=== PATIENT | female | born 1945 | race Caucasian/White ===

== ENCOUNTER 2017-08-21 13:02 | Inpatient (IN) | payer MEDICARE, OTHER ==
[2017-08-21 14:20] LABS: BASOPHILS # (AUTO) 0.1 10^3/uL (0.0-0.1); BASOPHILS % (AUTO) 0.9 %; EOSINOPHILS # (AUTO) 0.1 10^3/uL (0.0-0.7); EOSINOPHILS % (AUTO) 1.3 %; HCT - HEMATOCRIT 38.7 % (37.0-47.0); HGB - HEMOGLOBIN 13.5 g/dL (12.0-16.0); LYMPHOCYTES # (AUTO) 1.7 10^3/uL (1.5-3.5); LYMPHOCYTES % (AUTO) 26.2 %; MEAN CORPUSCULAR HEMOGLOBIN 31.9 pg (27.0-31.0); MEAN CORPUSCULAR VOLUME 91.1 fL (81.0-99.0); MEAN PLATELET VOLUME 7.4 fL (7.9-10.8); MONOCYTES # (AUTO) 0.5 10^3/uL (0.0-1.0); MONOCYTES % (AUTO) 8.5 %; NEUTROPHILS # (AUTO) 4.1 10^3/uL (1.5-6.6); NEUTROPHILS % (AUTO) 63.1 %; RED BLOOD COUNT 4.25 10^6/uL (4.20-5.40); RED CELL DISTRIBUTION WIDTH 12.8 % (12.0-15.0); UNCORRECTED WHITE BLOOD COUNT 6.5 x10^3/uL; WHITE BLOOD COUNT 6.5 x10^3/uL (4.8-10.8)
[2017-08-21 14:40] LABS: ALBUMIN/GLOBULIN RATIO 1.3 (1.0-2.2); BILIRUBIN,TOTAL 0.5 mg/dL (0.2-1.0); CALCIUM 8.9 mg/dL (8.5-10.3); CREATININE 0.8 mg/dL (0.4-1.0); POTASSIUM 4.1 mmol/L (3.5-5.0); TOTAL PROTEIN 6.6 g/dL (6.7-8.2)
[2017-08-21 14:43] LABS: BILIRUBIN,URINE NEGATIVE (NEGATIVE)
[2017-08-21 14:44] LABS: UA CHARGE (STRIP ONLY) YES; UR CULTURE IF IND NOT INDICATED
--- NOTE | 2017-08-21 15:02 | ED Physician Documentation ---
History of Present Illness - Stated complaint Stated Complaint: DIARRHEA,ABD PX,FATIGUE,NAUSEA - Chief complaint Chief Complaint: Abd Pain - Additonal information Additional information: hx from pt 72 f to ER with 2 days for nausea vomiting (intially better with meds from UC) abd bloating some diarrhea/loose stools, feels backed up and crampy, spot of blood in BM per pt urinary hesitancy perhaps retention went to walk in and examined no labs or imaging, rx nausea meds, advised if not better to go to the ER not better no prior surgeries family not sick visiting locally Review of Systems Constitutional: denies: Fever, Chills Cardiac: denies: Chest pain / pressure Respiratory: denies: Dyspnea GI: reports: Abdominal Pain, Abdominal Swelling, Nausea, Diarrhea, Bloody / black stool : reports: Hesitancy Immunocompromised: denies: Immunocompromised PD PAST MEDICAL HISTORY - Past Medical History Cardiovascular: Hypertension Respiratory: Emphysema Psych: Depression - Present Medications Home Medications: Ambulatory Orders Medication Instructions Recorded Confirmed Atorvastatin Calcium 40 mg PO DAILY 08/21/17 08/21/17 Citalopram [CeleXA] 40 mg PO DAILY 08/21/17 08/21/17 Glimepiride [Amaryl] 8 mg PO DAILY 08/21/17 08/21/17 Liraglutide [Victoza 2-Jorge] 0.3 mg SQ DAILY 08/21/17 08/21/17 Metformin HCl 1,000 mg PO BID 08/21/17 08/21/17 Quinapril HCl 1 tab PO DAILY 08/21/17 08/21/17 hydroCHLOROthiazide 25 mg PO DAILY 08/21/17 08/21/17 [Hydrochlorothiazide] - Allergies Allergies/Adverse Reactions: Allergies Allergy/AdvReac Type Severity Reaction Status Date / Time codeine Allergy Rash Verified 08/21/17 13:23 - Social History Does the pt smoke?: Yes Smoking Status: Current every day smoker PD ED PE NORMAL - Vitals Vital signs reviewed: Yes - Neck Neck: Supple, no meningeal sign - Cardiac Cardiac: RRR - Respiratory Respiratory: No respiratory distress, Clear bilaterally - Abdomen Abdomen: Soft, Other (mod distended, + BS, sofft, midline ventral hernia above umbilicus reucible, TTP across lower abd with enlarged bladder vs mass) - Rectal Rectal: Other (no mass, no impaction, occult blood neg QC passed) Results - Vitals Vitals: Vital Signs - 24 hr 08/21/17 08/21/17 13:18 15:40 Temperature 36.3 C L 36.5 C Heart Rate 93 81 Respiratory 17 18 Rate Blood Pressure 136/77 H 131/69 H O2 Saturation 97 95 Oxygen O2 Source Room air - Labs Labs: Laboratory Tests 08/21/17 08/21/17 08/21/17 13:50 14:15 14:15 WBC 6.5 RBC 4.25 Hgb 13.5 Hct 38.7 MCV 91.1 MCH 31.9 H MCHC 35.0 RDW 12.8 Plt Count 416 MPV 7.4 L Neut # 4.1 Lymph # 1.7 [place] # 0.5 Eos # 0.1 Baso # 0.1 Absolute Nucleated RBC 0.00 Nucleated RBC % 0.0 Sodium 117 L* Potassium 4.1 Chloride 77 L* Carbon Dioxide 27 Anion Gap 13.0 BUN 9 Creatinine 0.8 Estimated GFR (MDRD) 71 L Glucose 290 H Calcium 8.9 Total Bilirubin 0.5 AST 30 ALT 21 Alkaline Phosphatase 35 L Troponin I Total Protein 6.6 L Albumin 3.7 Globulin 2.9 Albumin/Globulin Ratio 1.3 Lipase 49 Urine Color YELLOW Urine Clarity CLEAR Urine pH 7.0 Ur Specific [place] 1.010 Urine Protein NEGATIVE Urine Glucose (UA) NEGATIVE Urine Ketones NEGATIVE Urine Occult Blood NEGATIVE Urine Nitrite NEGATIVE Urine Bilirubin NEGATIVE Urine Urobilinogen 0.2 (NORMAL) Ur Leukocyte Esterase NEGATIVE Ur Microscopic Review NOT INDICATED Urine Culture Comments NOT INDICATED 08/21/17 14:15 WBC RBC Hgb Hct MCV MCH MCHC RDW Plt Count MPV Neut # Lymph # [place] # Eos # Baso # Absolute Nucleated RBC Nucleated RBC % Sodium Potassium Chloride Carbon Dioxide Anion Gap BUN Creatinine Estimated GFR (MDRD) Glucose Calcium Total Bilirubin AST ALT Alkaline Phosphatase Troponin I < 0.04 Total Protein Albumin Globulin Albumin/Globulin Ratio Lipase Urine Color Urine Clarity Urine pH Ur Specific [place] Urine Protein Urine Glucose (UA) Urine Ketones Urine Occult Blood Urine Nitrite Urine Bilirubin Urine Urobilinogen Ur Leukocyte Esterase Ur Microscopic Review Urine Culture Comments - Rads (name of study) CT AP Radiology: See rad report (divertculosis no -itis, gallstones, tiny renal stone , other chronic findings) PD MEDICAL DECISION MAKING - ED course ED course: gallstones on CT but no RUQ TTP on exam, nl WBC and bili, no acute chle on CT - do not think need sono in summary 72 f with NVD bloating with a neg CT - may well be viral - but Na 117 so will talk to hospitalist to at least obs till safely higher Departure - Departure Disposition: 66 [facility] DC/Xfer Clinical Impression: Hyponatremia Abdominal pain Qualifiers: Abdominal location: unspecified location Qualified Code(s): R10.9 - Unspecified abdominal pain Condition: Fair
[2017-08-21] MEDS ORDERED: SODIUM CHLORIDE 0.9% 1,000 ML IV ONE (15:19)
--- NOTE | 2017-08-21 15:44 | CT Preliminary Report ---
Exam: CT ABDOMEN/PELVIS W/O IMPRESSION: 1. Marked diverticulosis. No definite diverticulitis at this time. 2. Cholelithiasis. 3. Tiny nonobstructing left renal stone. 4. Other chronic or incidental findings. [facility] SITE ID: [id number]
--- NOTE | 2017-08-21 15:46 | CT Report ---
EXAM: CT ABDOMEN AND PELVIS EXAM DATE: 08/21/2017 03:24 PM. CLINICAL HISTORY: Abd bloating pain nausea. COMPARISONS: None. TECHNIQUE: Routine helical CT imaging was performed through the abdomen and pelvis. IV contrast: None . Enteric contrast: No. Reconstructions: Coronal and sagittal. In accordance with CT protocol optimization, one or more of the following dose reduction techniques w ere utilized for this exam: automated exposure control, adjustment of mA and/or KV based on patient s ize, or use of iterative reconstructive technique. FINDINGS: Lung Bases: Clear. No effusion. At least 2 vessel coronary artery calcification. Liver: Tiny calcified granulomata. Otherwise unremarkable. Gallbladder/Bile Ducts: Small gallstones. No ductal dilation. Spleen: Calcified granulomata. Otherwise unremarkable. Pancreas: Normal. Adrenal Glands: Normal. Kidneys: Tiny nonobstructing left renal stone. Otherwise unremarkable. No hydronephrosis. Peritoneal Cavity/Bowel: Marked colonic diverticulosis. No free fluid, free air or adenopathy. No mas ses or acute inflammatory process. The appendix is well visualized and normal. Pelvic Organs: Normal. The bladder and visualized pelvic organs are within normal limits. Vasculature: No aneurysms or other significant abnormality. Bones: Grade 1-2 degenerative anterolisthesis of L4. Degenerative disk disease at L4-L5 and L5-S1. Other: None. IMPRESSION: 1. Marked diverticulosis. No definite diverticulitis at this time. 2. Cholelithiasis. 3. Tiny nonobstructing left renal stone. 4. Other chronic or incidental findings. [facility] Referring Provider Line: [phone] SITE ID: [id number]
[2017-08-21] MEDS ORDERED: TEMAZEPAM 15 MG CAPSULE PO PRN (17:01)
[2017-08-21] MEDS ORDERED: ONDANSETRON ODT 4 MG TABLET TL PRN (17:01)
[2017-08-21] MEDS ORDERED: SODIUM CHLORIDE FLUSH 0.9% 10 ML SYRINGE IVP PRN (17:01)
[2017-08-21] MEDS ORDERED: ACETAMINOPHEN 325 MG TABLET PO PRN (17:01)
[2017-08-21] MEDS ORDERED: NICOTINE 21 MG PATCH TOP STA (17:04)
[2017-08-21] MEDS ORDERED: HALOPERIDOL 5 MG/ML VIAL IVP PRN (17:08)
[2017-08-21] MEDS ORDERED: LORazepam 0.5 MG TABLET PO STA (17:18)
[2017-08-21] MEDS ORDERED: NICOTINE 14 MG PATCH TOP STA (17:18)
[2017-08-21] MEDS ORDERED: NICOTINE 14 MG PATCH TOP ONE (17:34)
[2017-08-21] MEDS ORDERED: LORazepam 0.5 MG TABLET ONE ×2 (17:34→17:35)
[2017-08-21] MEDS ORDERED: HALOPERIDOL 0.5 MG TABLET PO ONE (18:00)
[2017-08-21] MEDS: SODIUM CHLORIDE 0.9% 1,000 ML IV SCH (18:10)
--- NOTE | 2017-08-21 18:26 | HISTORY & PHYSICAL EXAMINATION ---
Chief Complaint - Chief Complaint Chief Complaint: hyponatremia History of Present Illness - Admitted From Admitted From:: ED - History Obtained From Records Reviewed: yes History obtained from: patient, grand daughter, ED notes. Exam Limitations: Agitation as patient insisted on going outside to smoke. - History of Present Illness HPI Comment/Other: Cortney Santiago is a petite 72-year old female who lives in [place], but is visiting her grand daughter for Thanksgiving. For the past 2 days the patient has been having N/V/D, so grand daughter took her to an urgent care where she was examined and released with a diagnosis of gastroenteritis. Today the patient continued to complain of "being so sick" and was increasingly anxious with multiple trips to the garage for a cigarette. Once in the ED patient was found to have an alarming sodium of 117, so NS bolus was started. Patient was very agitated throughout the admission process with grand daughter at the bedside attempting to persuade her grand mother to stay at the hospital rather than go out side to smoke. Patient was given oral sedatives and additional NS via IVF. We will monitor her progress. History - Past Medical History Cardiovascular: reports: Hypertension, High cholesterol Respiratory: reports: COPD, Emphysema Neuro: reports: Dementia Endocrine/Autoimmune: reports: Type 2 diabetes GI: reports: None BISCUIT [employer]ER: reports: None : reports: None, Frequency HEENT: reports: Chronic vision loss, Chronic hearing loss Psych: reports: Depression, Anxiety Musculoskeletal: reports: None Derm: reports: None MRSA Hx?: No - Family & Social History Family History: Mother: , Father: , CAD, Sister: Living arrangement: At home Living Situation: Alone - Substance History Use: Uses substance without health or social issues: Tobacco Use Issues: Anxiety Disorder Abuse: Recurrent use of substance despite neg consequences: NONE Dependence: Experiences withdrawal or developed tolerances: Tobacco (severe) Dependence Issues: Anxiety Disorder, Mood Disorder Tobacco Details: Cigarettes - POLST Patient has POLST: No POLST Status: Full Code Meds/Allgy - Home Medications Home Medications: Ambulatory Orders Medication Instructions Recorded Confirmed Atorvastatin Calcium 40 mg PO DAILY 08/21/17 08/21/17 Citalopram [CeleXA] 40 mg PO DAILY 08/21/17 08/21/17 Glimepiride [Amaryl] 8 mg PO DAILY 08/21/17 08/21/17 Liraglutide [Victoza 2-Jorge] 0.3 mg SQ DAILY 08/21/17 08/21/17 Metformin HCl 1,000 mg PO BID 08/21/17 08/21/17 Quinapril HCl 1 tab PO DAILY 08/21/17 08/21/17 hydroCHLOROthiazide 25 mg PO DAILY 08/21/17 08/21/17 [Hydrochlorothiazide] - Allergies Allergies/Adverse Reactions: Allergies Allergy/AdvReac Type Severity Reaction Status Date / Time codeine Allergy Rash Verified 08/21/17 13:23 Review of Systems - Constitutional Constitutional: reports: Fatigue, Weakness, Poor appetite - Eyes Eyes: reports: Spots in vision, Vision loss - Ears, Nose & Throat Ears, Nose & Throat: reports: Hearing loss, Tinnitus, Nasal congestion, Postnasal drainage, Dentures, Sore throat, Hoarseness - Cardiovascular Cariovascular: reports: Decr. exercise tolerance, Orthopnea - Respiratory Respiratory: reports: Cough, Sputum production, Wheezing, Orthopnea, SOB with exertion - Gastrointestinal Gastrointestinal: reports: Diarrhea, Change in bowel habits, Nausea, Vomiting, Bloating, Poor appetite - Genitourinary Genitourinary: reports: Frequency, Nocturia - Integumentary Integumentary: reports: Dryness, Lumps, Hair changes, Other (clubbing noted in finger nails on all ten digets of hands.) - Neurological Neurological: reports: General weakness, Memory problems, Pre-existing deficit - Psychiatric Psychiatric: reports: Anxiety, Hallucinations - All Other Systems All Other Systems: reports: Reviewed and negative Exam - Vital Signs Reviewed Vital Signs: Yes Vital Signs: Last Vital Signs Temp 36.6 C 08/21/17 21:00 Pulse 100 08/21/17 21:00 Resp 18 08/21/17 21:00 BP 148/61 H 08/21/17 21:00 Pulse Ox 98 08/21/17 21:00 - Physical Exam General Appearance: positive: Alert, Moderate distress, Anxious Eyes Bilateral: positive: Normal inspection ENT: positive: ENT inspection nml, Dry mucous membranes Neck: positive: Nml inspection, Thyroid nml, No JVD, Trachea midline Respiratory: positive: Chest non-tender, No respiratory distress, Rhonchi Cardiovascular: positive: Regular rate & rhythm, No gallop, Systolic murmur Peripheral Pulses: positive: 2+ Abdomen: positive: Non-tender, No organomegaly, Nml bowel sounds, No distention Skin: positive: Color nml, No rash, Warm, Dry, Pallor, Other (skin appears worn) Extremities: positive: Non-tender, Full ROM, Nml appearance, No pedal edema Neurologic/Psychiatric: positive: Disoriented to time, Sensory loss, Depressed mood/affect Reflexes: Bicep (R): 4+, Bicep (L): 4+ Conclusion/Plan - Problem List (1) Hyponatremia Conclusion/Plan: On admission, patient had a decreased/panic sodium level of 117. Plan: Treat with restricted free water and IVF (NS). Continue to monitor labs. (2) Nicotine dependence Conclusion/Plan: Patient states that she has been smoking since childhood and she is "addicted". Patient complained of wanting to smoke out side. This has been the focus of her complaints since coming to the ED. Plan: Nicotine patch 21mg applied in ED. We will continue to distract patient. Grand daughter at her bedside. (3) Altered mental status Conclusion/Plan: Patient could not name the exact town she was in, but can recall the intention of her trip from the [place]. She has decreased reasoning, and does not understand the severity of her condition. Plan: We will manage this by medical restraints and grand daughter has agreed to stay at her bed side for tonight to avoid physical wrist restraints. (4) Hypertension Conclusion/Plan: Patient has a known history of this per report and takes antihypertensives. Plan: Continue to monitor and give medications as needed. (5) Diabetes mellitus type 2 in nonobese Conclusion/Plan: Patient admits to generally controlled blood sugars at home and takes 2 oral agents. Plan: We will hold PO meds and put on SSI. (6) Hyperlipidemia Conclusion/Plan: Patient likely has this condition as a consequence of her long-history of tobacco dependence. Plan: Continue statin and check lipid labs if indicated. DVT prohylaxis with enoxoparin. Greater than 30 minutes was spent on this admission, including [id number] counseling and exam. - Lab Results Lab results reviewed: Yes Fish Bones: 08/22/17 05:58 08/22/17 05:58 - Diagnostic Imaging Results Diagnostic Imaging Results: positive: Prelim report reviewed - EKG Results EKG Interpreted Independently: Yes Issues/Core Measures - Anticipated LOS Anticipated Stay Length: 2 or more midnights - DVT/VTE - Prophylaxis VTE/DVT Device ordered at admit?: Yes VTE/DVT Prophylaxis med ordered at admit?: Yes - Stroke - Rehab Assessment Rehab services assessment to be ordered?: No - AMI - Statin at Admit Aspirin Prescribed on Admit: Yes
[2017-08-21 18:33] LABS: CALCIUM 8.3 mg/dL (8.5-10.3); CREATININE 0.6 mg/dL (0.4-1.0); POTASSIUM 3.8 mmol/L (3.5-5.0)
[2017-08-21] MEDS: INSULIN ASPART 300 UNIT/3 ML PEN SUBQ SCH ×2 (18:57→22:45)
[2017-08-21] MEDS ORDERED: INSULIN ASPART 300 UNIT/3 ML PEN SUBQ ONE (18:58)
[2017-08-21] MEDS ORDERED: HALOPERIDOL 1 MG TABLET PO SCH ×2 (19:00→19:01)
[2017-08-21] MEDS: LORazepam 2 MG/ML SYRINGE IVP PRN (19:16)
--- NOTE | 2017-08-21 20:44 | XRAY Preliminary Report ---
Exam: XR CHEST 1 VIEW IMPRESSION: No acute cardiopulmonary disease seen. [facility] SITE ID: [id number]
--- NOTE | 2017-08-21 20:47 | XRAY Report ---
EXAM: CHEST RADIOGRAPHY EXAM DATE: 08/21/2017 07:32 PM. CLINICAL HISTORY: Hypoxia. COMPARISON: None. TECHNIQUE: 1 view. FINDINGS: Lungs/Pleura: No consolidation or airspace disease. No pleural effusion. No pneumothorax. Couple of l eft apex calcified pulmonary nodules. Mediastinum: Within exam limitations, the cardiomediastinal contour is normal. Patient is rotated to the right. IMPRESSION: No acute cardiopulmonary disease seen. [facility] Referring Provider Line: [phone] SITE ID: [id number]
[2017-08-21] MEDS ORDERED: INSULIN GLARGINE 300 UNIT/3 ML PEN SUBQ SCH (21:00)
[2017-08-21] MEDS: SODIUM CHLORIDE FLUSH 0.9% 10 ML SYRINGE IVP SCH (22:39)
[2017-08-22] MEDS: LORazepam 2 MG/ML SYRINGE IVP PRN ×2 (02:19→10:23)
[2017-08-22] MEDS: SODIUM CHLORIDE FLUSH 0.9% 10 ML SYRINGE IVP SCH ×3 (05:41→23:50)
[2017-08-22 06:12] LABS: BASOPHILS # (AUTO) 0.1 10^3/uL (0.0-0.1); BASOPHILS % (AUTO) 0.9 %; EOSINOPHILS # (AUTO) 0.3 10^3/uL (0.0-0.7); HCT - HEMATOCRIT 37.4 % (37.0-47.0); HGB - HEMOGLOBIN 12.6 g/dL (12.0-16.0); LYMPHOCYTES # (AUTO) 3.2 10^3/uL (1.5-3.5); MEAN CORPUSCULAR HEMOGLOBIN 31.5 pg (27.0-31.0); MEAN CORPUSCULAR HGB CONC 33.7 g/dL (32.0-36.0); MEAN CORPUSCULAR VOLUME 93.5 fL (81.0-99.0); MEAN PLATELET VOLUME 7.1 fL (7.9-10.8); MONOCYTES # (AUTO) 0.8 10^3/uL (0.0-1.0); MONOCYTES % (AUTO) 9.2 %; NEUTROPHILS # (AUTO) 4.5 10^3/uL (1.5-6.6); NEUTROPHILS % (AUTO) 50.9 %; RED BLOOD COUNT 3.99 10^6/uL (4.20-5.40); RED CELL DISTRIBUTION WIDTH 12.8 % (12.0-15.0); UNCORRECTED WHITE BLOOD COUNT 8.8 x10^3/uL; WHITE BLOOD COUNT 8.8 x10^3/uL (4.8-10.8)
[2017-08-22] MEDS: SODIUM CHLORIDE 0.9% 1,000 ML IV SCH ×4 (06:23→23:50)
[2017-08-22 06:26] LABS: ALBUMIN/GLOBULIN RATIO 1.2 (1.0-2.2); BILIRUBIN,TOTAL 0.5 mg/dL (0.2-1.0); CALCIUM 8.1 mg/dL (8.5-10.3); CREATININE 0.4 mg/dL (0.4-1.0); MAGNESIUM 1.2 mg/dL (1.7-2.8); PHOSPHORUS 2.9 mg/dL (2.5-4.6); POTASSIUM 3.9 mmol/L (3.5-5.0); TOTAL PROTEIN 5.8 g/dL (6.7-8.2)
--- NOTE | 2017-08-22 06:38 | PROVIDER PROGRESS NOTE ---
Subjective - Prog Note Date Prog Note Date: 08/22/17 Prog Note Time: 06:38 - Subjective Pt reports feeling: Improved Subjective: Cortnye states that she did not sleep very well and is concerned about her blood sugars. She denies SOB, chest pain, N/V or a new cough. She admits to a chronic cough. Current Medications - Current Medications Current Medications: Active Medications Acetaminophen (Tylenol) 650 mg PO Q4HR PRN PRN Reason: Pain 1 to 4 Atorvastatin Calcium (Lipitor) 40 mg PO DAILY [facility] Last Admin: 08/22/17 14:28 Dose: 40 mg Citalopram Hydrobromide (Celexa) 40 mg PO DAILY [facility] Last Admin: 08/22/17 14:28 Dose: 40 mg Dronabinol (Marinol) 2.5 mg PO BIDAC [facility] Last Admin: 08/22/17 14:29 Dose: 2.5 mg Enoxaparin Sodium (Lovenox) 40 mg SUBQ DAILY [facility] Last Admin: 08/22/17 09:21 Dose: 40 mg Famotidine (Pepcid) 20 mg PO DAILY [facility] Last Admin: 08/22/17 09:22 Dose: 20 mg Haloperidol (Haldol Inj) 1 mg IVP Q4H PRN PRN Reason: Agitation Hydrochlorothiazide (Hydrodiuril) 25 mg PO DAILY [facility] Last Admin: 08/22/17 14:30 Dose: 25 mg Sodium Chloride (Normal Saline 0.9%) 1,000 mls @ 50 mls/hr IV .Q20H [facility] Last Admin: 08/22/17 09:22 Dose: 50 mls/hr Insulin Aspart (Novolog) 1 - 9 unit SUBQ 0800,1200,1700,2100 [facility] PRN Reason: Protocol Last Admin: 08/22/17 12:01 Dose: 5 unit Insulin Aspart (Novolog) 5 unit SUBQ TIDWM [facility] Last Admin: 08/22/17 14:34 Dose: Not Given Insulin Glargine (Lantus Solostar) 10 unit SUBQ QPM [facility] Last Admin: 08/21/17 22:44 Dose: 10 unit Lorazepam (Ativan Inj) 1 mg IVP Q2HR PRN PRN Reason: Agitation Last Admin: 08/22/17 10:23 Dose: 1 mg Magnesium Oxide (Mag Ox) 400 mg PO BID [facility] Last Admin: 08/22/17 14:28 Dose: 400 mg Ondansetron HCl (Zofran Odt) 4 mg TL Q6HR PRN PRN Reason: Nausea / Vomiting Polyethylene Glycol (Miralax) 17 gm PO DAILY [facility] Last Admin: 08/22/17 09:22 Dose: 17 gm Sodium Chloride (Normal Saline Flush 0.9%) 10 ml IVP PRN PRN PRN Reason: NEEDED PER PROVIDER ORDERS Sodium Chloride (Normal Saline Flush 0.9%) 10 ml IVP Q8HR [facility] Last Admin: 08/22/17 12:02 Dose: Not Given Temazepam (Restoril) 15 mg PO QPM PRN PRN Reason: Insomnia Trazodone HCl (Desyrel) 50 mg PO QPM PRN PRN Reason: Insomnia Atorvastatin Calcium 40 mg PO DAILY 08/21/17 Citalopram [CeleXA] 40 mg PO DAILY 08/21/17 Glimepiride [Amaryl] 8 mg PO DAILY 08/21/17 Liraglutide [Victoza 2-Jorge] 0.3 mg SQ DAILY 08/21/17 Metformin HCl 1,000 mg PO BIDWM 08/21/17 Quinapril HCl 20 mg PO DAILY 08/21/17 hydroCHLOROthiazide [Hydrochlorothiazide] 25 mg PO DAILY 08/21/17 Trazodone HCl 50 mg PO QPM PRN 08/22/17 Objective - Vital Signs/Intake & Output Reviewed Vital Signs: Yes Vital Signs: Vital Signs x48h Temp Pulse Resp BP Pulse Ox 08/22/17 05:00 35.9 C L 86 16 128/75 98 08/21/17 23:59 36.5 C 91 18 159/67 H 96 Intake & Output: Intake & Output 08/19/17 08/20/17 08/21/17 08/22/17 23:59 23:59 23:59 23:59 Intake Total 1100 1832.5 Output Total 200 600 Balance 900 1232.5 - Objective General Appearance: positive: No acute distress, Alert Eyes Bilateral: positive: Normal inspection, PERRL ENT: positive: ENT inspection nml, Pharynx nml, Dry mucous membranes Neck: positive: Nml inspection, Thyroid nml, No JVD, Trachea midline Respiratory: positive: Chest non-tender, No respiratory distress, Rhonchi Cardiovascular: positive: Regular rate & rhythm, No gallop, Systolic murmur Peripheral Pulses: 2+ Radial (R), 2+ Radial (L), 2+ Dorsalis pedis (R), 2+ Dorsalis pedis (L) Abdomen: positive: Non-tender, No organomegaly, Nml bowel sounds, No distention Rectal: positive: Non-tender Back: positive: Nml inspection Skin: positive: Color nml, No rash, Warm, Dry Extremities: positive: Non-tender, Full ROM, No pedal edema Neurologic/Psychiatric: positive: Oriented x3, CN's nml (2-12), Motor nml, Sensation nml, Weakness Reflexes: Bicep (R): 3+, Bicep (L): 3+ - Lab Results Fish Bones: 08/22/17 05:58 08/22/17 05:58 Other Labs: Lab Results x24hrs 08/22/17 08/22/17 08/22/17 Range/Units 05:58 05:58 05:58 WBC 8.8 (4.8-10.8) x10^3/uL RBC 3.99 L (4.20-5.40) 10^6/uL Hgb 12.6 (12.0-16.0) g/dL Hct 37.4 (37.0-47.0) % MCV 93.5 (81.0-99.0) fL MCH 31.5 H (27.0-31.0) pg MCHC 33.7 (32.0-36.0) g/dL RDW 12.8 (12.0-15.0) % Plt Count 429 (130-450) 10^3/uL MPV 7.1 L (7.9-10.8) fL Neut # 4.5 (1.5-6.6) 10^3/uL Lymph # 3.2 (1.5-3.5) 10^3/uL [place] # 0.8 (0.0-1.0) 10^3/uL Eos # 0.3 (0.0-0.7) 10^3/uL Baso # 0.1 (0.0-0.1) 10^3/uL Absolute Nucleated RBC 0.00 x10^3/uL Nucleated RBC % 0.0 /100WBC Sodium 126 L (135-145) mmol/L Potassium 3.9 (3.5-5.0) mmol/L Chloride 91 L (101-111) mmol/L Carbon Dioxide 26 (21-32) mmol/L Anion Gap 9.0 (6-13) BUN 7 (6-20) mg/dL Creatinine 0.4 (0.4-1.0) mg/dL Estimated GFR (MDRD) 157 (>89) Glucose 83 (70-100) mg/dL POC Whole Bld Glucose (70 - 100) mg/dL Lactic Acid 0.7 (0.5-2.2) mmol/L Calcium 8.1 L (8.5-10.3) mg/dL Phosphorus 2.9 (2.5-4.6) mg/dL Magnesium 1.2 L (1.7-2.8) mg/dL Total Bilirubin 0.5 (0.2-1.0) mg/dL AST 26 (10-42) IU/L ALT 22 (10-60) IU/L Alkaline Phosphatase 36 L (42-121) IU/L Total Protein 5.8 L (6.7-8.2) g/dL Albumin 3.2 (3.2-5.5) g/dL Globulin 2.6 (2.1-4.2) g/dL Albumin/Globulin Ratio 1.2 (1.0-2.2) 08/21/17 08/21/17 Range/Units 21:29 17:12 WBC (4.8-10.8) x10^3/uL RBC (4.20-5.40) 10^6/uL Hgb (12.0-16.0) g/dL Hct (37.0-47.0) % MCV (81.0-99.0) fL MCH (27.0-31.0) pg MCHC (32.0-36.0) g/dL RDW (12.0-15.0) % Plt Count (130-450) 10^3/uL MPV (7.9-10.8) fL Neut # (1.5-6.6) 10^3/uL Lymph # (1.5-3.5) 10^3/uL [place] # (0.0-1.0) 10^3/uL Eos # (0.0-0.7) 10^3/uL Baso # (0.0-0.1) 10^3/uL Absolute Nucleated RBC x10^3/uL Nucleated RBC % /100WBC Sodium 120 L* (135-145) mmol/L Potassium 3.8 (3.5-5.0) mmol/L Chloride 84 L (101-111) mmol/L Carbon Dioxide 27 (21-32) mmol/L Anion Gap 9.0 (6-13) BUN 8 (6-20) mg/dL Creatinine 0.6 (0.4-1.0) mg/dL Estimated GFR (MDRD) 99 (>89) Glucose 189 H (70-100) mg/dL POC Whole Bld Glucose 142 H (70 - 100) mg/dL Lactic Acid (0.5-2.2) mmol/L Calcium 8.3 L (8.5-10.3) mg/dL Phosphorus (2.5-4.6) mg/dL Magnesium (1.7-2.8) mg/dL Total Bilirubin (0.2-1.0) mg/dL AST (10-42) IU/L ALT (10-60) IU/L Alkaline Phosphatase (42-121) IU/L Total Protein (6.7-8.2) g/dL Albumin (3.2-5.5) g/dL Globulin (2.1-4.2) g/dL Albumin/Globulin Ratio (1.0-2.2) - Diagnostic Imaging Diagnostic Imaging Results: positive: Final report reviewed Diagnostic Imaging Comments: Abdominal/pelvis CT: IMPRESSION: 1. Marked diverticulosis. No definite diverticulitis at this time. 2. Cholelithiasis. 3. Tiny nonobstructing left renal stone. 4. Other chronic or incidental findings. Chest x-ray: FINDINGS: Lungs/Pleura: No consolidation or airspace disease. No pleural effusion. No pneumothorax. Couple of left apex calcified pulmonary nodules. Mediastinum: Within exam limitations, the cardiomediastinal contour is normal. Patient is rotated to the right. IMPRESSION: No acute cardiopulmonary disease seen. Chest CT with contrast due to Chest x-ray findings of a nodule in [place] 08/22/17: FINDINGS: Lungs/Pleura: No bronchial thickening, consolidation, or edema. Pulmonary vasculature is normal. No pericardial or pleural effusion. No pneumothorax. Chest radiographic nodule is a calcified left upper lobe granuloma. Mild centrilobular emphysema is noted. Mediastinum: Extensive three-vessel coronary artery calcifications. No cardiac enlargement. 1.5 cm right hilar node on image 32. Calcified nodes are noted in the AP window. No central pulmonary emboli. Moderate stenosis due to atheromatous disease in the proximal left subclavian artery on image 15. Bones: Unremarkable. Visualized Abdomen: See separate CT abdomen and pelvis report from 08/21/2017. Splenic calcifications are noted. Mild thickening of the left adrenal gland without a discrete nodule. Limited evaluation of upper abdomen is otherwise unremarkable. Marked atheromatous plaques are noted at the origin of the celiac axis and SMA. IMPRESSION: 1. Calcified left upper lobe granulomas. No lung mass or soft tissue nodule. 2. No pneumothorax or effusions. Mild centrilobular emphysema. 3. Extensive coronary artery calcifications. 1.5 cm indeterminate right hilar node, possibly reactive. Assessment/Plan - Problem List (1) Hyponatremia Impression: On admission, patient had a decreased/panic sodium level of 117, now trending upward to 126. IV Fluids placed on hold. Chest CT today noted splenic calcifications, mild thickening of the left adrenal gland without a discrete nodule. Plan: Treat with restricted free water and IVF (NS). Will re-start or hold IV fluids based on 1700 labs. Continue to monitor labs and AM cortisol to evaluate adrenal function to potentially rule in or rule out adrenal as a contributing factor of her admitting diagnosis. (2) Nicotine dependence Impression: Patient states that she has been smoking since childhood and she is "addicted". Patient complained of wanting to smoke out side. This has been the focus of her complaints since coming to the ED. Today on exam, patient is much more reasonable with demands and did not make that request even once. Plan: Nicotine patch 21mg applied in ED. We will continue to distract patient. Grand daughter at her bedside. Nicotine patch was refused today. (3) Altered mental status Impression: Patient could not name the exact town she was in, but can recall the intention of her trip from the [place]. She has decreased reasoning, and does not understand the severity of her condition. Plan: We will manage this by medical restraints and grand daughter has agreed to stay at her bed side for tonight to avoid physical wrist restraints. (4) Hypertension Impression: Last B/P is 162/68. Know history. Plan: Will make adjustments to medications. (5) Diabetes mellitus type 2 in nonobese Impression: Patient admits to generally controlled blood sugars at home and takes 2 oral agents. Patient will need to hold her home metformin x48 from today and can plan to resume it on 08/24/17. She will likely be placed on lantus SQ for home use due to her supremely elevated A1C. Patient was noted to be hypoglycemic this AM at 65mg/dl, otherwise 200-300s. Plan: We will hold PO meds and put on SSI. (6) Hyperlipidemia Impression: Patient likely has this condition as a consequence of her long-history of tobacco dependence. Plan: Continue statin and check lipid labs if indicated. (7) CAD (coronary artery disease) Impression: According to chest CT results show Extensive coronary artery calcifications. This is not a surprise considering her life-long tobacco dependence. Plan: Continue statins and recommend ASA.
[2017-08-22 06:40] LABS: HEMOGLOBIN A1C 1.12 g/dL
[2017-08-22] MEDS: INSULIN ASPART 300 UNIT/3 ML PEN SUBQ SCH ×6 (08:45→21:14)
[2017-08-22] MEDS: ENOXAPARIN 40 MG/0.4 ML SYRINGE SUBQ SCH (09:21)
[2017-08-22] MEDS: POLYETHYLENE GLYCOL 3350 17 GM PACKET PO SCH (09:22)
[2017-08-22] MEDS: FAMOTIDINE 20 MG TABLET PO SCH (09:22)
[2017-08-22] MEDS ORDERED: IOPAMIDOL-300 100 ML VIAL ONE (09:28)
[2017-08-22] MEDS ORDERED: IOPAMIDOL-300 100 ML VIAL IVP ONE (10:04)
--- NOTE | 2017-08-22 12:07 | CT Preliminary Report ---
Exam: CT CHEST W/ IMPRESSION: 1. Calcified left upper lobe granulomas. No lung mass or soft tissue nodule. 2. No pneumothorax or effusions. On centrilobular emphysema. 3. Extensive coronary artery calcifications. 1.5 since the indeterminate right hilar node, possibly r eactive. [facility] SITE ID: [id number]
[2017-08-22] MEDS ORDERED: traZODone 50 MG TABLET PO PRN (12:29)
--- NOTE | 2017-08-22 12:44 | CT Report ---
EXAM: CT CHEST EXAM DATE: 08/22/2017 10:05 AM. CLINICAL HISTORY: Chest pain. Malignancy. COMPARISONS: 08/21/2017. TECHNIQUE: Routine helical CT imaging was performed through the chest. IV contrast: 100 mL of Isovue 300. Reconstructions: Coronal and sagittal. In accordance with CT protocol optimization, one or more of the following dose reduction techniques w ere utilized for this exam: automated exposure control, adjustment of mA and/or KV based on patient s ize, or use of iterative reconstructive technique. FINDINGS: Lungs/Pleura: No bronchial thickening, consolidation, or edema. Pulmonary vasculature is normal. No p ericardial or pleural effusion. No pneumothorax. Chest radiographic nodule is a calcified left upper lobe granuloma. Mild centrilobular emphysema is noted. Mediastinum: Extensive three-vessel coronary artery calcifications. No cardiac enlargement. 1.5 cm ri ght hilar node on image 32. Calcified nodes are noted in the AP window. No central pulmonary emboli. Moderate stenosis due to atheromatous disease in the proximal left subclavian artery on image 15. Bones: Unremarkable. Visualized Abdomen: See separate CT abdomen and pelvis report from 08/21/2017. Splenic calcifications are noted. Mild thickening of the left adrenal gland without a discrete nodule. Limited evaluation o f upper abdomen is otherwise unremarkable. Marked atheromatous plaques are noted at the origin of the celiac axis and SMA. Other: None. IMPRESSION: 1. Calcified left upper lobe granulomas. No lung mass or soft tissue nodule. 2. No pneumothorax or effusions. Mild centrilobular emphysema. 3. Extensive coronary artery calcifications. 1.5 cm indeterminate right hilar node, possibly reactive . [facility] Referring Provider Line: [phone] SITE ID: [id number]
[2017-08-22] MEDS ORDERED: MAGNESIUM SULFATE 2 GM in SODIUM CHLORIDE 0.9% 50 ML IV SCH (13:00)
[2017-08-22] MEDS: ATORVASTATIN 40 MG TABLET PO SCH (14:28)
[2017-08-22] MEDS: CITALOPRAM 10 MG TABLET PO SCH (14:28)
[2017-08-22] MEDS: MAGNESIUM OXIDE 400 MG TABLET PO SCH ×2 (14:28→21:11)
[2017-08-22] MEDS: DRONABINOL 2.5 MG CAPSULE PO SCH ×2 (14:29→16:44)
[2017-08-22] MEDS: MAGNESIUM SULFATE 2 GRAM 2 GM/50 ML BAG IV SCH ×2 (14:29→16:45)
[2017-08-22] MEDS: hydroCHLOROthiazide 25 MG TABLET PO SCH (14:30)
[2017-08-22] MEDS: NICOTINE 21 MG PATCH TOP SCH (16:42)
[2017-08-22 16:48] LABS: CALCIUM 8.4 mg/dL (8.5-10.3); CREATININE 0.5 mg/dL (0.4-1.0); POTASSIUM 4.3 mmol/L (3.5-5.0)
[2017-08-22] MEDS ORDERED: INSULIN GLARGINE 300 UNIT/3 ML PEN SUBQ SCH (16:54)
[2017-08-23] MEDS: SODIUM CHLORIDE FLUSH 0.9% 10 ML SYRINGE IVP SCH ×2 (05:41→13:01)
[2017-08-23] MEDS: DRONABINOL 2.5 MG CAPSULE PO SCH (06:19)
[2017-08-23 08:22] LABS: BASOPHILS # (AUTO) 0.2 10^3/uL (0.0-0.1); BASOPHILS % (AUTO) 1.8 %; EOSINOPHILS # (AUTO) 0.2 10^3/uL (0.0-0.7); EOSINOPHILS % (AUTO) 1.7 %; HCT - HEMATOCRIT 38.5 % (37.0-47.0); LYMPHOCYTES # (AUTO) 2.3 10^3/uL (1.5-3.5); LYMPHOCYTES % (AUTO) 23.8 %; MEAN CORPUSCULAR HEMOGLOBIN 31.3 pg (27.0-31.0); MEAN CORPUSCULAR HGB CONC 33.8 g/dL (32.0-36.0); MEAN CORPUSCULAR VOLUME 92.5 fL (81.0-99.0); MEAN PLATELET VOLUME 7.4 fL (7.9-10.8); MONOCYTES # (AUTO) 0.7 10^3/uL (0.0-1.0); MONOCYTES % (AUTO) 7.4 %; NEUTROPHILS # (AUTO) 6.4 10^3/uL (1.5-6.6); NEUTROPHILS % (AUTO) 65.3 %; RED BLOOD COUNT 4.16 10^6/uL (4.20-5.40); RED CELL DISTRIBUTION WIDTH 12.8 % (12.0-15.0); UNCORRECTED WHITE BLOOD COUNT 9.7 x10^3/uL; WHITE BLOOD COUNT 9.7 x10^3/uL (4.8-10.8)
[2017-08-23] MEDS ORDERED: INSULIN ASPART 300 UNIT/3 ML PEN SUBQ SCH (08:22)
[2017-08-23 08:28] LABS: ALBUMIN/GLOBULIN RATIO 1.2 (1.0-2.2); BILIRUBIN,TOTAL 0.5 mg/dL (0.2-1.0); BUN - BLOOD UREA NITROGEN 9 mg/dL (6-20); CALCIUM 8.1 mg/dL (8.5-10.3); CARBON DIOXIDE - CO2 28 mmol/L (21-32); CHLORIDE 87 mmol/L (101-111); CREATININE 0.5 mg/dL (0.4-1.0); GFR - MDRD 122 (>89); GLUCOSE 134 mg/dL (70-100); POTASSIUM 4.5 mmol/L (3.5-5.0); SODIUM 124 mmol/L (135-145); TOTAL PROTEIN 6.7 g/dL (6.7-8.2)
[2017-08-23 08:38] LABS: CALCIUM, IONIZED 1.03 mmol/L (1.15-1.33); VBG PH 7.349 (7.31-7.41)
[2017-08-23] MEDS: LORazepam 2 MG/ML SYRINGE IVP PRN (09:31)
[2017-08-23] MEDS: SODIUM CHLORIDE 0.9% 1,000 ML IV SCH ×2 (09:35→13:01)
[2017-08-23] MEDS ORDERED: LORazepam 2 MG/ML VIAL IVP PRN (09:41)
[2017-08-23] MEDS: POLYETHYLENE GLYCOL 3350 17 GM PACKET PO SCH (10:13)
[2017-08-23] MEDS: NICOTINE 21 MG PATCH TOP SCH (10:13)
[2017-08-23] MEDS: ENOXAPARIN 40 MG/0.4 ML SYRINGE SUBQ SCH (10:14)
[2017-08-23] MEDS: CITALOPRAM 10 MG TABLET PO SCH (10:15)
[2017-08-23] MEDS: MAGNESIUM OXIDE 400 MG TABLET PO SCH (10:15)
[2017-08-23] MEDS: ATORVASTATIN 40 MG TABLET PO SCH (10:16)
[2017-08-23] MEDS: FAMOTIDINE 20 MG TABLET PO SCH (10:16)
[2017-08-23] MEDS: hydroCHLOROthiazide 25 MG TABLET PO SCH (10:19)
--- NOTE | 2017-08-23 13:39 | Discharge Plan ---
Discharge Plan Disposition: 01 Home, Self Care Condition: Fair Prescriptions: amLODIPine [Norvasc] 5 mg PO DAILY #30 tablet Insulin Glargine [Lantus Solostar] 5 unit SUBQ QPM #1 pen Sodium Chloride [Salt Tab] 1 gm PO DAILY #30 tablet Diet: Diabetic Activity Restrictions: No Restrictions Shower Restrictions: No Driving Restrictions: Yes Weight Bearing: Full Weight Additional Instructions or Follow Up instructions: Cortney came to the ED and was found to be dehydrated and hyponatremic- low sodium. This was dangerously low, only 117. Normal levels are 135-145. Although she did not reach normal levels at the time of discharge, the benefit of achieving this range was not worth the risk of the toll and stress of keeping her in the hospital. To set the stage for a continued upward trend, Cortney is to STOP her hydrochlorothiazide and Quinapril and start Norvasc, because this will likely allow her to retain salt, in addition, sodium tablets are recommended. Cortney's urine sodium was 101, which the normal should have been around 10. PCP may decide to check another urine for this. A chest x-ray was completed and showed a left upper lung lobe nodule, so a chest CT was ordered. The nodule was thought to be a calcium deposit, no malignancy or cancer found, A FOLLOW UP CT NEEDS TO BE SCHEDULED. Please take all medications as prescribed. [place] A motorcycle subassembly repairer (kidney specialist) may be helpful in the event that the sodium does not correct itself with the medication changes or with better blood sugar control. No Smoking: If you smoke, Please STOP! Call for help.
--- NOTE | 2017-08-23 13:40 | DISCHARGE SUMMARY ---
Discharge Summary Admit Date: 08/21/17 Discharge Date: 08/23/17 Discharging Provider: GUILLERMO Arredondo Primary Care Provider: Gildardo Terry Code Status: Attempt Resuscitation Condition at Discharge: Fair Discharge Disposition: 01 Home, Self Care - DIAGNOSES Admission Diagnoses: Hypo-osmolality and hyponatremia (E87.1) Nicotine dependence, unspecified, uncomplicated (F17.200) Altered mental status, unspecified (R41.82) Essential (primary) hypertension (I10) Type 2 diabetes mellitus without complications (E11.9) Hyperlipidemia, unspecified (E78.5) Discharge Diagnoses with Status of Each Condition: (1) Hyponatremia Impression: On admission, patient had a decreased/panic sodium level of 117, and reached a max of 126. IVFs. Chest CT completed and noted splenic calcifications, mild thickening of the left adrenal gland without a discrete nodule. AM cortisol level normal. Plan: Treat with restricted free water and IVF (NS). Plan to prescribe sodium tablets upon discharge. I am changing her HCTZ to a Norvasc upon discharge to prevent her sodium loss. (2) Nicotine dependence Impression: Patient states that she has been smoking since childhood and she is "addicted". Patient complained of wanting to smoke out side. This has been the focus of her complaints since coming to the ED. Today on exam, patient is much more reasonable with demands and did not make that request even once. Plan: Nicotine patch 21mg applied in ED and continued on the nursing floor. We will continue to distract patient. Grand daughter at her bedside. (3) Altered mental status Impression: Patient could not name the exact town she was in, but can recall the intention of her trip from the [place]. She has decreased reasoning, and does not understand the severity of her condition. Plan: We will manage this by medications and family involvement to avoid physical wrist restraints. I will prescribe a short coarse of xanax for home use. (4) Hypertension Impression: Last B/P is 162/68. Know history. Plan: Will make adjustments to medications. (5) Diabetes mellitus type 2 in nonobese Impression: Patient admits to generally controlled blood sugars at home and takes 2 oral agents. Patient will need to hold her home metformin x48 from today and can plan to resume it on 08/24/17. She will likely be placed on lantus SQ for home use due to her supremely elevated A1C. Patient was noted to be hypoglycemic this AM at 65mg/dl, otherwise 200-300s. Plan: We will hold PO meds and put on SSI. Lantus will be continued for home use in conjuction with metformin. I will discontinue her 2 other antiglycemic medications. (6) Hyperlipidemia Impression: Patient likely has this condition as a consequence of her long-history of tobacco dependence. Plan: Continue statin and check lipid labs if indicated. (7) CAD (coronary artery disease) Impression: According to chest CT results show Extensive coronary artery calcifications. This is not a surprise considering her life-long tobacco dependence. Plan: Continue statins and recommend ASA. - HPI History of Present Illness: Cortney Santiago is a petite 72-year old female who lives in [place], but is visiting her grand daughter for Thanksgiving. For the past 2 days the patient has been having N/V/D, so grand daughter took her to an urgent care where she was examined and released with a diagnosis of gastroenteritis. Today the patient continued to complain of "being so sick" and was increasingly anxious with multiple trips to the garage for a cigarette. Once in the ED patient was found to have an alarming sodium of 117, so NS bolus was started. Patient was very agitated throughout the admission process with grand daughter at the bedside attempting to persuade her grand mother to stay at the hospital rather than go out side to smoke. Patient was given oral sedatives and additional NS via IVF. We will monitor her progress. - HOSPITAL COURSE Hospital Course: Cortney had an eventful hospital course and primarily came to the ED with confusion, fatigue, and a gasteroenteritis that was not resolved. Her original Na+ was 117, which improved slowly to 126 after IVF and blood sugar control. A1C was 10, so Lantus 10 units, with SSI was started, then decreased to 5 units due to 2 hypoglycemic events. Her altered mental status never completed resolved, but much of this is baseline. Smoking cessation was an exacerbating factor to her confusion, but with lorazepam and grand daughter support, this was managed. A chest x-ray was completed on admission due to SOB and cough, and a nodule in upper left lobe was noted. A CT chest was completed that showed the nodule was a calcium deposit. Her urine sodium was elevated suggesting a kidney function cause, so follow up with nephrology and a change in blood pressure medication was made. Patient was stabilized enough and prescribed Lantus insulin, sodium tablets, and to see PCP in the next few days. She was transported via private car back home with grand daughter. - ALLERGIES Allergies/Adverse Reactions: Allergies Allergy/AdvReac Type Severity Reaction Status Date / Time codeine Allergy Rash Verified 08/21/17 13:23 - MEDICATIONS Home Medications: Ambulatory Orders Medication Instructions Recorded Confirmed Atorvastatin Calcium 40 mg PO DAILY 08/21/17 08/22/17 Citalopram [CeleXA] 40 mg PO DAILY 08/21/17 08/22/17 Glimepiride [Amaryl] 8 mg PO DAILY 08/21/17 08/22/17 Liraglutide [Victoza 2-Jorge] 0.3 mg SQ DAILY 08/21/17 08/22/17 Metformin HCl 1,000 mg PO BIDWM 08/21/17 08/22/17 Quinapril HCl 20 mg PO DAILY 08/21/17 08/22/17 hydroCHLOROthiazide 25 mg PO DAILY 08/21/17 08/22/17 [Hydrochlorothiazide] Trazodone HCl 50 mg PO QPM PRN 08/22/17 08/22/17 - PHYSICAL EXAM AT DISCHARGE General Appearance: positive: No acute distress, Lethargic Eyes Bilateral: positive: Normal inspection ENT: positive: ENT inspection nml, Pharynx nml, No signs of dehydration Neck: positive: Nml inspection, Thyroid nml, No JVD, Trachea midline Respiratory: positive: Chest non-tender, No respiratory distress, Rhonchi ( crackles both lower lobes.) Cardiovascular: positive: Regular rate & rhythm, No gallop, Systolic murmur Peripheral Pulses: positive: 2+ Abdomen: positive: Non-tender, No organomegaly, Nml bowel sounds, No distention Back: positive: Nml inspection Skin: positive: Color nml, No rash, Warm, Dry Extremities: positive: Non-tender, Full ROM, Nml appearance, No pedal edema Neurologic/Psychiatric: positive: Motor nml, Disoriented to time, Weakness, Sensory loss Reflexes: Bicep (R): 3+, Bicep (L): 3+ - LABS Result Diagrams: 08/23/17 08:07 08/23/17 08:07 - DIAGNOSTIC IMAGING Diagnostic Imaging Results: Final report reviewed Diagnostic Imaging Results Comments: Abdominal/pelvis CT: IMPRESSION: 1. Marked diverticulosis. No definite diverticulitis at this time. 2. Cholelithiasis. 3. Tiny nonobstructing left renal stone. 4. Other chronic or incidental findings. Chest x-ray: FINDINGS: Lungs/Pleura: No consolidation or airspace disease. No pleural effusion. No pneumothorax. Couple of left apex calcified pulmonary nodules. Mediastinum: Within exam limitations, the cardiomediastinal contour is normal. Patient is rotated to the right. IMPRESSION: No acute cardiopulmonary disease seen. Chest CT with contrast due to Chest x-ray findings of a nodule in [place] 08/22/17: FINDINGS: Lungs/Pleura: No bronchial thickening, consolidation, or edema. Pulmonary vasculature is normal. No pericardial or pleural effusion. No pneumothorax. Chest radiographic nodule is a calcified left upper lobe granuloma. Mild centrilobular emphysema is noted. Mediastinum: Extensive three-vessel coronary artery calcifications. No cardiac enlargement. 1.5 cm right hilar node on image 32. Calcified nodes are noted in the AP window. No central pulmonary emboli. Moderate stenosis due to atheromatous disease in the proximal left subclavian artery on image 15. Bones: Unremarkable. Visualized Abdomen: See separate CT abdomen and pelvis report from 08/21/2017. Splenic calcifications are noted. Mild thickening of the left adrenal gland without a discrete nodule. Limited evaluation of upper abdomen is otherwise unremarkable. Marked atheromatous plaques are noted at the origin of the celiac axis and SMA. IMPRESSION: 1. Calcified left upper lobe granulomas. No lung mass or soft tissue nodule. 2. No pneumothorax or effusions. Mild centrilobular emphysema. 3. Extensive coronary artery calcifications. 1.5 cm indeterminate right hilar node, possibly reactive. - FOLLOW UP Follow Up: Cortney came to the ED and was found to be dehydrated and hyponatremic- low sodium. This was dangerously low, only 117. Normal levels are 135-145. Although she did not reach normal levels at the time of discharge, the benefit of achieving this range was not worth the risk of the toll and stress of keeping her in the hospital. To set the stage for a continued upward trend, Cortney is to STOP her hydrochlorothiazide and start Norvasc, because this will likely allow her to retain salt, in addition, sodium tablets are recommended. Cortney's urine sodium was 101, which the normal should have been around 10. PCP may decide to check another urine for this. A chest x-ray was completed and showed a left upper lung lobe nodule, so a chest CT was ordered. The nodule was thought to be a calcium deposit, no malignancy or cancer found, A FOLLOW UP CT NEEDS TO BE SCHEDULED. Please take all medications as prescribed[place] A last puller (kidney specialist) may be helpful in the event that the sodium does not correct itself with the medication changes or with better blood sugar control. - TIME SPENT Time Spent in Discharge (Minutes): 60
[2017-08-23] MEDS ORDERED: amLODIPine 5 MG TABLET PO SCH (14:00)
[2017-08-23 15:02] VITALS: BP 121/95
== END 2017-08-23 15:41 | disposition home or self-care (01) | DRG 641 ==
LOC: ED 13:02 → MS2 17:01
PROVIDERS: ADMIT Nurse Practitioner; ATTEND Nurse Practitioner
DX: E87.1 Hypo-osmolality and hyponatremia (principal); R10.9 Unspecified abdominal pain; F17.210 Nicotine dependence, cigarettes, uncomplicated; R41.82 Altered mental status, unspecified; R41.3 Other amnesia; F17.200 Nicotine dependence, unspecified, uncomplicated; I10 Essential (primary) hypertension; E11.9 Type 2 diabetes mellitus without complications; E78.5 Hyperlipidemia, unspecified; I25.10 Atherosclerotic heart disease of native coronary artery without angina pectoris; E86.0 Dehydration; J43.9 Emphysema, unspecified; F32.9 Major depressive disorder, single episode, unspecified; F41.9 Anxiety disorder, unspecified; J98.4 Other disorders of lung; R82.99 Other abnormal findings in urine; K57.30 Diverticulosis of large intestine without perforation or abscess without bleeding; H54.7 Unspecified visual loss; H91.90 Unspecified hearing loss, unspecified ear; Z79.1 Long term (current) use of non-steroidal anti-inflammatories (NSAID); Z79.899 Other long term (current) drug therapy
CPT/HCPCS: 36415; 71010; 71260; 74176; 80048; 80053; 81001; 81003; 82330; 82533; 82570; 83036; 83605; 83690; 83735; 83935; 84100; 84300; 84443; 84484; 85025; 87086; 96360; 96361; 99283; 99284